=== PATIENT | female | born 1980 | race African-American/Black ===

== ENCOUNTER 2017-05-19 09:17 | Inpatient (IN) | payer OTHER ==
[~2017-05-19] VITALS: Ht 167.6 cm; Wt 99.3 kg
[~2017-05-19 09:17] MED LIST: ASPIRIN81 M2 PO; PRENATAL TABLE1 EACH PO; ZOFRAN ODT4 MG PO
[2017-05-19 09:43] VITALS: BP 130/81
[2017-05-19 10:20] LABS: EOSINOPHIL (%) 0.2 % (0-5); IMMATURE GRANULOCYTE (%) 0.5 % (0.0-0.7); IMMATURE GRANULOCYTE COUNT 0.1 K/uL; INSTRUMENT ABS NEUTROPHIL CT 9.4 K/uL; LYMPHOCYTE COUNT 2.2 K/uL (1.0-2.8); MCH 27.1 PG (29.0-34.0); MCHC 32.6 G/DL (30.0-36.0); MEAN PLAT.VOLUME 11.4 uM^3 (9.5-12.4); MONOCYTE (%) 6.5 % (3-12); MONOCYTE COUNT 0.8 K/uL (0-0.8); NEUTROPHIL (%) 74.8 % (45-76); NEUTROPHIL COUNT 9.4 K/uL (1.8-6.4); PLATELET COUNT 206 K/uL (156-360); RBC DIS.WIDTH-CV 14.1 % (11.8-14.6); RBC DIS.WIDTH-SD 42.5 % (39-53); RED BLOOD COUNT 5.06 M/uL (3.80-5.20); WHITE BLOOD COUNT 12.5 K/uL (4.1-10.2)
[2017-05-19 11:51] VITALS: BP 125/79
[2017-05-19 15:26] VITALS: BP 135/79
[2017-05-19 16:22] VITALS: BP 126/81
[2017-05-19 17:25] VITALS: BP 135/69
[2017-05-19 21:45] VITALS: BP 119/71
[2017-05-20 07:03] LABS: BASOPHIL COUNT 0.1 K/uL (0-0.1); EOSINOPHIL (%) 0.1 % (0-5); HEMATOCRIT 32.8 % (36.0-46.0); IMMATURE GRANULOCYTE (%) 0.8 % (0.0-0.7); IMMATURE GRANULOCYTE COUNT 0.1 K/uL; INSTRUMENT ABS NEUTROPHIL CT 11.6 K/uL; LYMPHOCYTE COUNT 2.3 K/uL (1.0-2.8); MCH 28.2 PG (29.0-34.0); MCHC 33.2 G/DL (30.0-36.0); MCV 84.8 FL (83-99); MONOCYTE (%) 6.8 % (3-12); NEUTROPHIL (%) 77.1 % (45-76); NEUTROPHIL COUNT 11.6 K/uL (1.8-6.4); RBC DIS.WIDTH-CV 14.4 % (11.8-14.6); RBC DIS.WIDTH-SD 44.2 % (39-53); WHITE BLOOD COUNT 15.1 K/uL (4.1-10.2)
[2017-05-20 07:07] LABS: RED BLOOD COUNT 3.87 M/uL (3.80-5.20)
[2017-05-20 07:11] LABS: MEAN PLAT.VOLUME 11.6 uM^3 (9.5-12.4); PLAT.SUFFICIENCY ADEQUATE; PLATELET COUNT 174 K/uL (156-360)
[2017-05-20 11:52] VITALS: BP 124/66
[2017-05-21 23:30] VITALS: BP 110/51
[2017-05-22 07:20] VITALS: BP 127/65
[2017-05-22] MEDS ORDERED: CHROMAGEN,1 CAPSULE PO (07:37)
[2017-05-22] MEDS ORDERED: ENDOCET 5-3251 EACH PO (07:37)
[2017-05-22] MEDS ORDERED: IBUPROFEN800 MG PO (07:37)
[2017-05-22 15:03] VITALS: BP 139/73
[2017-05-22 22:49] VITALS: BP 123/74
[2017-05-23 07:11] VITALS: BP 121/79
== END 2017-05-23 14:00 | disposition home or self-care (01) | DRG 765 ==
LOC: 2WEST 09:17 → 2SOUTH 09:27 → 2WEST 05-23 14:00
PROVIDERS: Obstetrics & Gynecology Obstetrics
PROC: 10D00Z1 Extraction of Products of Conception, Low, Open Approach (ICD-10-PCS; principal; 2017-05-19)
DX: O34.211 Maternal care for low transverse scar from previous cesarean delivery (principal); D62 Acute posthemorrhagic anemia; O99.52 Diseases of the respiratory system complicating childbirth; O69.81X0 Labor and delivery complicated by cord around neck, without compression, not applicable or unspecified; O99.02 Anemia complicating childbirth; Z37.0 Single live birth; Z3A.39 39 weeks gestation of pregnancy; Z82.49 Family history of ischemic heart disease and other diseases of the circulatory system
CPT/HCPCS: 85025; 86900; 86901; J0690; J1100; J1885; J2274; J2405; J3010; J7050; J7120